=== PATIENT | female | born 1950 ===

== ENCOUNTER 2025-02-15 07:30 | Outpatient (CLI) | payer OTHER ==
[2025-02-15 08:48] LABS: CREATININE SERUM 0.72 mg/dL (0.55-1.02)
== END 2025-02-15 07:31 | disposition home or self-care (01) ==
LOC: LAB 07:30
PROVIDERS: ATTEND Radiology Diagnostic Radiology
DX: R10.30 Lower abdominal pain, unspecified (principal)

== ENCOUNTER 2025-03-02 07:55 | Outpatient (CLI) | payer OTHER | END 2025-03-02 08:08 | disposition home or self-care (01) | LOC: TOM 07:55 | PROVIDERS: ATTEND Internal Medicine Gastroenterology | DX: K57.90 Diverticulosis of intestine, part unspecified, without perforation or abscess without bleeding (principal) | CPT/HCPCS: 74177; Q9965 ==